=== PATIENT | male | born 2000 | race Caucasian/White ===

== ENCOUNTER 2020-05-09 14:07 | Emergency (ER) | payer OTHER ==
[~2020-05-09] VITALS: Ht 182.9 cm; Wt 104.3 kg
[~2020-05-09 14:07] MED LIST: NOHOMEMEDICATIONS
[2020-05-09 14:25] VITALS: BP 158/89
[2020-05-09] MEDS ORDERED: ONDANSETRON HCL4 M2 PO (14:45)
== END 2020-05-09 14:59 | disposition home or self-care (01) ==
LOC: M.ERS 14:07
DX: B34.9 Viral infection, unspecified (principal); Z20.828 Contact with and (suspected) exposure to other viral communicable diseases; Z98.890 Other specified postprocedural states